=== PATIENT | male | born 1965 | race Caucasian/White ===

== ENCOUNTER 2025-02-25 05:53 | Emergency (ER) | payer MEDICAID ==
[~2025-02-25] VITALS: Ht 180.3 cm; Wt 77.1 kg
[2025-02-25 06:02] VITALS: TEMP 97.9
[2025-02-25] MEDS ORDERED: LORAZEPAM INJ 2 MG/ML VIAL ONE (06:17)
[2025-02-25] MEDS: LORAZEPAM INJ 2 MG/ML VIAL IM ONE (06:40)
[2025-02-25] MEDS ORDERED: IV NS 0.9% 250 ML IV ONE (07:08)
[2025-02-25] MEDS ORDERED: IOHEXOL-350 100 ML VIAL IV ONE (07:08)
[2025-02-25] MEDS ORDERED: CT SWABBABLE VALVE TRANS SET 1 EA INFUS.SET MC ONE (07:08)
[2025-02-25 07:27] LABS: PLATELET COUNT (AUTO) 384 K/uL (150-450); RED BLOOD CELL COUNT(AUTO) 4.78 MIL/uL (4.5-6.0); RED CELL DISTRIBUTION WIDTH 20.8 % (11.5-15.0); WHITE BLOOD COUNT (AUTO) 11.4 K/uL (4.3-11.0)
[2025-02-25 07:37] LABS: CALCIUM, SERUM 9.5 mg/dL (8.5-10.1); CREATININE 2.0 mg/dL (0.6-1.3); SODIUM SERUM 139 mmol/L (136-145); UREA NITROGEN, BLOOD 36 mg/dL (7-18)
[2025-02-25 07:43] LABS: INR 1.09 (0.91-1.10)
[2025-02-25 07:47] LABS: ASPARTATE AMINOTRANSFERASE 44 U/L (15-37); TOTAL PROTEIN, SERUM 8.9 g/dL (6.4-8.2)
[2025-02-25 08:27] LABS: APPEARANCE,URINE CLEAR (CLEAR); BLOOD, URINE TRACE-INTA Ery/uL (NEGATIVE); LEUKOCYTE ESTERASE ,URINE NEGATIVE (NEGATIVE); NITRITE, URINE NEGATIVE (NEGATIVE); UGLUCOSE NEGATIVE (NEGATIVE)
[2025-02-25 08:29] LABS: ADD URINE CULTURE NO; SQUAMOUS EPITHELIAL CELL,UR Few /HPF (None Seen)
[2025-02-25 08:37] LABS: BARBITURATE, URINE NEGATIVE (NEGATIVE); BENZODIAZEPINE, URINE NEGATIVE (NEGATIVE); CANNABINOID, URINE NEGATIVE (NEGATIVE); COCCAINE, URINE NEGATIVE (NEGATIVE); OPIATE, URINE NEGATIVE (NEGATIVE)
[2025-02-25 08:39] LABS: AMPHETAMINE, URINE POSITIVE (NEGATIVE)
[2025-02-25 08:50] VITALS: BP 146/108; O2SAT 100
== END 2025-02-25 09:15 | disposition left against medical advice (07) ==
LOC: ER 06:00
DX: I16.1 Hypertensive emergency (principal); R53.1 Weakness; R20.2 Paresthesia of skin; R20.0 Anesthesia of skin; I10 Essential (primary) hypertension; R74.01 Elevation of levels of liver transaminase levels; R06.4 Hyperventilation; R06.02 Shortness of breath; R00.0 Tachycardia, unspecified; F41.9 Anxiety disorder, unspecified; F15.10 Other stimulant abuse, uncomplicated; N17.9 Acute kidney failure, unspecified; Z59.00 Homelessness unspecified; Z20.822 Contact with and (suspected) exposure to COVID-19
CPT/HCPCS: 99285; 70450; 71045; 87426; 93005; 70498; 70496; 85025; 80048; 82550; 80076; 81001; 36415; 84484; 85730; 87081; 82553; 80143; 80307; 96372; J2060; J7050; Q9967

== ENCOUNTER 2025-03-03 16:44 | Emergency (ER) | payer MEDICAID ==
[~2025-03-03] VITALS: Ht 172.7 cm; Wt 93.0 kg
[2025-03-03] MEDS ORDERED: OLANZAPINE 10 MG VIAL IM ONE (17:20)
[2025-03-03] MEDS: OLANZAPINE 10 MG VIAL IM ONE (17:24)
[2025-03-03 17:33] LABS: ABG BASE EXCESS -2.9 mmol/L (-2.0-3.0); ABG OXYGEN SATURATION 98.4 % (94.0-98.0); ABG PCO2 11.2 mmHg (35.0-48.0); ABG PH 7.702 (7.350-7.450); ABG PO2 103.5 mmHg (83.0-108.0); ABG TOTAL HEMOGLOBIN 12.4 G/dL (13.5-17.5); FRACTIONATED INSPIRED OXYGEN 21.0 %; SITE, ABG RIGHT RADIAL
[2025-03-03 18:07] LABS: CALCIUM, SERUM 9.2 mg/dL (8.5-10.1); CREATININE 1.7 mg/dL (0.6-1.3); SODIUM SERUM 137 mmol/L (136-145); UREA NITROGEN, BLOOD 39 mg/dL (7-18)
[2025-03-03 18:13] LABS: ASPARTATE AMINOTRANSFERASE 44 U/L (15-37); TOTAL PROTEIN, SERUM 8.6 g/dL (6.4-8.2)
[2025-03-03 18:38] LABS: APPEARANCE,URINE CLEAR (CLEAR); BLOOD, URINE Trace-lysed Ery/uL (NEGATIVE); LEUKOCYTE ESTERASE ,URINE Negative (NEGATIVE); UGLUCOSE Negative (NEGATIVE)
[2025-03-03 18:43] LABS: NITRITE, URINE NEGATIVE (NEGATIVE)
[2025-03-03 18:44] LABS: ADD URINE CULTURE NO; CALCIUM OXALATE CRYSTALS,UR Rare /HPF (None Seen); SQUAMOUS EPITHELIAL CELL,UR None Seen /HPF (None Seen)
[2025-03-03 18:46] LABS: AMPHETAMINE, URINE POSITIVE (NEGATIVE); BARBITURATE, URINE NEGATIVE (NEGATIVE); BENZODIAZEPINE, URINE NEGATIVE (NEGATIVE); CANNABINOID, URINE NEGATIVE (NEGATIVE); COCCAINE, URINE NEGATIVE (NEGATIVE); OPIATE, URINE NEGATIVE (NEGATIVE)
[2025-03-03 20:00] VITALS: BP 143/89; TEMP 98.4; O2SAT 98
== END 2025-03-03 20:00 | disposition home or self-care (01) ==
LOC: ER 17:11
DX: F45.8 Other somatoform disorders (principal); F15.10 Other stimulant abuse, uncomplicated; E86.0 Dehydration; F41.0 Panic disorder [episodic paroxysmal anxiety]; I10 Essential (primary) hypertension; Z20.822 Contact with and (suspected) exposure to COVID-19; Z79.899 Other long term (current) drug therapy
CPT/HCPCS: 99285; 71045; 87426; 96372; 93005; 82803; 80048; 80076; 36415; 80143; 80307; 81001; J3490